=== PATIENT | male | born 1980 | race Caucasian/White ===

== ENCOUNTER 2020-10-31 14:00 | Emergency (ER) | payer MEDICARE, MEDICAID ==
[~2020-10-31] VITALS: Ht 172.7 cm; Wt 115.3 kg
[~2020-10-31 14:00] MED LIST: GUAN2TAB11 PO; LISI20TA28 PO; NICO-631 TD; QUET300T5 PO; SIMV20TA PO
[2020-10-31 14:36] VITALS: BP 129/93
== END 2020-10-31 16:56 | disposition left against medical advice (07) ==
LOC: ER 14:00
DX: M79.604 Pain in right leg (principal); Z53.21 Procedure and treatment not carried out due to patient leaving prior to being seen by health care provider

== ENCOUNTER 2020-11-03 19:48 | Emergency (ER) | payer MEDICARE, MEDICAID ==
[~2020-11-03] VITALS: Ht 172.7 cm; Wt 106.3 kg
[2020-11-03 20:09] VITALS: BP 148/90
== END 2020-11-04 02:26 | disposition left against medical advice (07) ==
LOC: ER 19:48
DX: M79.604 Pain in right leg (principal); Z53.21 Procedure and treatment not carried out due to patient leaving prior to being seen by health care provider

== ENCOUNTER 2021-05-27 14:11 | Inpatient (IN) | payer MEDICARE, MEDICAID ==
[~2021-05-27] VITALS: Ht 172.7 cm; Wt 102.7 kg
[2021-05-27] MEDS ORDERED: hydrOXYzine 25 MG tablet PO ONE (15:45)
[2021-05-27 16:44] LABS: BASOPHILS % (AUTO) 0.5 % (0-1); EOSINOPHILS # (AUTO) 0.1 X10'3 (0-0.9); EOSINOPHILS % (AUTO) 0.5 % (0-6); HEMATOCRIT 47.9 % (42.0-52.0); HEMOGLOBIN 16.5 g/dl (14.0-17.9); LYMPHOCYTES # (AUTO) 2.6 X10'3 (1.1-4.8); LYMPHOCYTES % (AUTO) 24.2 % (21-51); MEAN CORPUSCULAR HEMOGLOBIN 30.9 PG (27.0-31.0); MEAN CORPUSCULAR HGB CONC 34.5 g/dL (33.0-36.5); MEAN CORPUSCULAR VOLUME 89.5 FL (78-98); MEAN PLATELET VOLUME 8.3 FL (7.4-10.4); MONOCYTES # (AUTO) 0.6 X10'3 (0-0.9); MONOCYTES % (AUTO) 5.2 % (2-12); NEUTROPHILS # (AUTO) 7.6 X10'3 (1.8-7.7); NEUTROPHILS % (AUTO) 69.6 % (42-75); PLATELET COUNT 216 X10'3 (140-440); RED BLOOD COUNT 5.35 X10'6 (4.70-6.10); RED CELL DISTRIBUTION WIDTH 14.5 % (11.5-14.5); WHITE BLOOD COUNT 10.9 X10'3 (4.5-11.0)
[2021-05-27 16:52] LABS: ALANINE AMINOTRANSFERASE 42 U/L (12-78); ALBUMIN 4.5 G/DL (3.4-5.0); ALBUMIN/GLOBULIN RATIO 1.3 (1.1-1.5); ALKALINE PHOSPHATASE 90 IU/L (46-116); ANION GAP 15 (8-16); ASPARTATE AMINO TRANSFERASE 21 U/L (10-37); BILIRUBIN,TOTAL 0.4 MG/DL (0.1-1.0); BLOOD UREA NITROGEN 12 MG/DL (7-18); BUN/CREATININE RATIO 12.2 (5.4-32.0); CHLORIDE 105 MMOL/L (99-107); CREATININE 0.98 MG/DL (0.60-1.10); GLUCOSE 116 MG/DL (70-104); POTASSIUM 3.7 MMOL/L (3.5-5.1); SODIUM 140 MMOL/L (135-145); TOTAL CARBON DIOXIDE 20.3 MMOL/L (24-32); eGFR 85 ML/MIN
[2021-05-27 17:01] LABS: ETHANOL < 0.010 GM/DL (0.0-0.010)
--- NOTE | 2021-05-27 17:23 | NUR ---
PT ACTIVELY PACING AROUND ROOM. APPEARS ANXIOUS.
[2021-05-27 17:24] LABS: URINE AMPHETAMINE SCREEN NEGATIVE (Neg); URINE BARBITUATE SCREEN NEGATIVE (Neg); URINE BENZODIAZEPINES SCREEN NEGATIVE (Neg); URINE CANNABINOID SCREEN POSITIVE (Neg); URINE COCAINE SCREEN NEGATIVE (Neg); URINE METHADONE SCREEN NEGATIVE (Neg); URINE OPIATE SCREEN NEGATIVE (Neg); URINE PHENCYCLIDINE SCREEN NEGATIVE (Neg)
[2021-05-27 17:33] LABS: CLARITY,URINE CLEAR (Clear); COLOR,URINE YELLOW (Yellow); GLUCOSE, URINE NEGATIVE (Neg); KETONES,URINE TRACE mg/dl (Neg); LEUKOCYTE ESTERASE ,URINE NEGATIVE (Neg); NITRITES, URINE NEGATIVE (Neg); OCCULT BLOOD,URINE NEGATIVE (Neg); PH,URINE 5.5 (4.8-8.0); PROTEIN,URINE 100 mg/dl (Neg); UROBILINOGEN,URINE 0.2 E.U/dL (0.2-1.0)
--- NOTE | 2021-05-27 17:47 | NUR ---
PT MOM AT BEDSIDE.
[2021-05-27 17:54] LABS: UA COLLECTION TYPE URINAL
[2021-05-27 17:55] LABS: BACTERIA,URINE NONE SEEN /HPF (Neg); HYALINE CASTS 0-3 /LPF (NEGATIVE); RBC,URINE NONE SEEN /HPF (0-2)
[2021-05-27 17:56] LABS: SQUAMOUS EPITHELIAL CELL,UR NONE SEEN /LPF (FEW); WBC,URINE 0-4 /HPF (0-4)
[2021-05-27] MEDS ORDERED: QUET300T2 PO (19:57)
[2021-05-27] MEDS ORDERED: QUET400T13 PO (23:36)
[2021-05-28] MEDS ORDERED: quetiapine 100mg tablet PO ONE (02:35)
--- NOTE | 2021-05-28 06:31 | NUR ---
Report received from JHON Freire. Patient resting quietly; no apparent distress.
--- NOTE | 2021-05-28 07:06 | NUR ---
PACKET FAXED TO [facility] FROM BOTH ADMITTING FAX AND NURSES STATION MACHINES AT 0700 05/28/21
--- NOTE | 2021-05-28 08:15 | NUR ---
Patient given breakfast tray.
[2021-05-28] MEDS ORDERED: nicotine 21mg patch - 24 hr TD ONE (11:10)
--- NOTE | 2021-05-28 12:18 | NUR ---
Patient moved from main ER to overflow. Endorses suicidal ideation with a plan to stab himself. Contracts for safety at this time. Resting quietly in bed.
[2021-05-28] MEDS ORDERED: PALI234D IM (12:30)
[2021-05-28] MEDS ORDERED: ATOR20TA PO (12:31)
[2021-05-28] MEDS ORDERED: HYDR-3686 PO (12:34)
[2021-05-28] MEDS ORDERED: DESV100T PO (12:35)
[2021-05-28] MEDS ORDERED: APIX5TAB3 PO (12:38)
[2021-05-28] MEDS ORDERED: TRAZ-251 PO (12:38)
[2021-05-28] MEDS ORDERED: QUET-1 PO (12:38)
[2021-05-28] MEDS ORDERED: LISI10TA27 PO (12:39)
[2021-05-28] MEDS: lisinopril 20mg tablet PO SCH (12:53)
[2021-05-28] MEDS: guanFACINE 1 mg tablet PO SCH ×2 (14:19→19:58)
[2021-05-28] MEDS: apixaban 5mg tablet PO SCH (14:19)
[2021-05-28] MEDS: hydrOXYzine 25 MG tablet PO SCH (14:20)
--- NOTE | 2021-05-28 15:18 | NUR ---
Transfers to [facility] at this time. Ambulates off the unit escorted by security. No s/sx acute distress.
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
[2021-05-28] MEDS ORDERED: loperamide 2mg capsule PO PRN (15:45)
[2021-05-28] MEDS ORDERED: acetaminophen 325mg tablet PO PRN ×2 (15:45)
[2021-05-28] MEDS ORDERED: magnesium hydroxide 30ml (MOM) UD suspension PO PRN (15:45)
[2021-05-28] MEDS ORDERED: mag hydrox/Alum hydrox/simeth 30ml oral suspension PO PRN (15:45)
[2021-05-28] MEDS ORDERED: NICOTINE POLACRILEX 2 MG LOZENGE BC PRN (16:05)
[2021-05-28] MEDS ORDERED: hydrOXYzine 25 MG tablet PO PRN (16:05)
[2021-05-28 16:10] VITALS: BP 160/90
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
[2021-05-28] MEDS: quetiapine 100mg tablet PO SCH (19:58)
[2021-05-28] MEDS: atorvastatin 20mg tablet PO SCH (19:59)
[2021-05-28 20:32] VITALS: BP 132/84
[2021-05-28] MEDS ORDERED: traZODone 50mg tablet PO SCH (21:00)
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
[2021-05-29 07:16] VITALS: BP 109/70
[2021-05-29] MEDS: nicotine 21mg patch - 24 hr TD SCH (08:02)
[2021-05-29] MEDS: guanFACINE 1 mg tablet PO SCH ×2 (08:02→20:55)
[2021-05-29] MEDS: hydrOXYzine 25 MG tablet PO SCH (08:03)
[2021-05-29] MEDS: lisinopril 20mg tablet PO SCH (08:03)
[2021-05-29] MEDS: apixaban 5mg tablet PO SCH (08:03)
[2021-05-29 09:12] LABS: CHOL/HDL RATIO 6.1 (0.00-4.99); CHOLESTEROL 202 MG/DL (0-200); HDL CHOLESTEROL 33 MG/DL (35-60); LDL CHOLESTEROL 113 MG/DL (50-100); TRIGLYCERIDES 263 MG/DL (20-135)
[2021-05-29] MEDS: venlafaxine 25mg tablet PO SCH ×3 (09:15→20:56)
[2021-05-29 09:29] LABS: HEMOGLOBIN A1C 5.8 % (4.5-6.2)
--- NOTE | 2021-05-29 17:50 | NUR ---
Nursing Progress Note: Legal hold: 5150 Client on involuntary status for DTS. Report received from JHON Garcia with use of SBAR. Why are they here: Pt was placed on a 5150 by [facility] for attempted suicide on 05/27/21. He was transported by EMS to [facility] ED. Current [address] [facility] is for DTS. Edward reported hearing voices that "never go away." he left a note for his mother and laid in the backyard with a knife to stab himself. He reports that his cat "knew something was wrong and stopped him." Assessment What has happened this shift: Patient is resting quietly in bed at the start of the shift. Cooperative with medications and 1:1 assessment. Appears somewhat depressed and isolates to his room. States, I wonder how long I have to stay here. Endorses AH but does not repeat what they say. He does state that they say mean things but they do not tell him to do things. States, I always hear voices. Eats meals in the community room and interacts appropriately with staff and peers. Naps in the afternoon. Upon awakening patient states he is feeling better. States, I havent slept in 3 days. I think Im catching up. S/I, H/I: Denies A/VH: Endorses AH that say bad things Sleep: Naps off and on throughout the day ADL's: Independent Group attendance: NA Were meds taken: Yes Any med S/E: None observed or reported Mental Status Exam Appearance: Tall male, clean, neat, wearing green unit scrubs. Eye contact: Fair Behavior: Cooperative, isolative Speech: Clear, normal rate/ volume Mood: Ok. Affect: Constricted Thought process: Linear Thought Content: Wanting to go home. Cognition: A/O x4 Insight: Poor Judgment: Poor Interventions PRN's used: None Therapeutic interventions: Maintained safe, established rapport, therapeutic environment, encouraged unit orientation, provided appropriate nutrition, medication administration/education/monitoring, redirection as needed, encouraged therapeutic conversation; Q15 min safety checks. Restraints/seclusion/emergency medication: N/A Justification of Continued Inpatient Treatment: Pt presents to [facility] with SI. Requires a safe and supportive environment with medication adjustment and monitoring.
[2021-05-29 20:15] VITALS: BP 132/72
[2021-05-29] MEDS: quetiapine 100mg tablet PO SCH (20:55)
[2021-05-29] MEDS: atorvastatin 20mg tablet PO SCH (20:55)
[2021-05-29] MEDS: traZODone 50mg tablet PO SCH (20:56)
--- NOTE | 2021-05-30 03:00 | NUR ---
Nursing Progress Note: Legal hold: 5150 Client on involuntary status for DTS. Report received from JHON Thrasher with use of SBAR. Why are they here: Pt was placed on a 5150 by [facility] for attempted suicide on 05/27/21. He was transported by EMS to [facility] ED. Current 5150 written by [facility] is for DTS. Edward reported hearing voices that "never go away." he left a note for his mother and laid in the backyard with a knife to stab himself. He reports that his cat "knew something was wrong and stopped him." Assessment What has happened this shift: Patient was resting quietly in bed at the start of the shift. He was easily aroused and cooperative with medications and 1:1 assessment. He was noted to be sweating but denied discomfort. After being examined he covered his body and face with the blanket to go back to sleep. Tonight he reports that he feels good because he does not have any thoughts of killing himself. At the time of his evaluation he also reported that he was not currently hearing voices. S/I, H/I: Denies A/VH: Denies current AH/VH Sleep: Sleeping at the time of this note ADL's: Independent Group attendance: N/A Were meds taken: Yes - whole with water Any med S/E: None observed or reported Mental Status Exam Appearance: Male, appropriately groomed, wearing green unit scrubs. Eye contact: Fair Behavior: Cooperative, isolative Speech: Clear, normal rate/ volume Mood: Good Affect: Constricted Thought process: Linear Thought Content: Feels good that he does not have SI. Wants to sleep. Cognition: A/O x4 Insight: Poor Judgment: Poor Interventions PRN's used: None Therapeutic interventions: Maintained safe, established rapport, therapeutic environment, provided appropriate nutrition, medication administration/education/monitoring, redirection as needed, encouraged therapeutic conversation; Q15 min safety checks. Restraints/seclusion/emergency medication: N/A Justification of Continued Inpatient Treatment: Pt presents to [facility] with SI. Requires a safe and supportive environment with medication adjustment and monitoring.
[2021-05-30 08:11] VITALS: BP 128/71
[2021-05-30] MEDS: lisinopril 20mg tablet PO SCH (08:12)
[2021-05-30] MEDS: hydrOXYzine 25 MG tablet PO SCH (08:13)
[2021-05-30] MEDS: apixaban 5mg tablet PO SCH (08:13)
[2021-05-30] MEDS: guanFACINE 1 mg tablet PO SCH ×2 (08:13→20:53)
[2021-05-30] MEDS: nicotine 21mg patch - 24 hr TD SCH (08:13)
[2021-05-30] MEDS: venlafaxine 25mg tablet PO SCH ×3 (08:13→20:53)
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
[2021-05-30 19:32] VITALS: BP 124/80
[2021-05-30] MEDS: atorvastatin 20mg tablet PO SCH (20:52)
[2021-05-30] MEDS: quetiapine 100mg tablet PO SCH (20:53)
[2021-05-30] MEDS: traZODone 50mg tablet PO SCH (20:53)
--- NOTE | 2021-05-31 03:00 | NUR ---
Nursing Progress Note: Legal hold: 5150 Client on involuntary status for DTS. Report received from JHON Thrasher with use of SBAR. Why are they here: Pt was placed on a 5150 by [facility] for attempted suicide on 05/27/21. He was transported by EMS to [facility] ED. Current 5150 written by [facility] is for DTS. Edward reported hearing voices that "never go away." he left a note for his mother and laid in the backyard with a knife to stab himself. He reports that his cat "knew something was wrong and stopped him." Assessment What has happened this shift: At the start of the shift the patient was up ambulating in the hallway and listening to headphones. He looked well, was groomed and asked for his medicines. At the time of med-pass pt was in his room. He reported he had a good day. He did not have any SI, he was able to take a shower and do some laundry. He is looking forward to being discharged home. He will live with his mother since he is on SSI. He also states that if he gets SI while at home, he will call his mother for help. S/I, H/I: Denies A/VH: Denies current AH/VH Sleep: Sleeping at the time of this note ADL's: Independent Group attendance: N/A Were meds taken: Yes - whole with water Any med S/E: None observed or reported Mental Status Exam Appearance: Male, well-groomed, wearing a sweatshirt and green scrub bottoms. Eye contact: Fair Behavior: Cooperative & interacted more today Speech: Clear, normal rate/ volume Mood: Good Affect: Constricted and he partially smiled once Thought process: Linear Thought Content: Feels good, not having SI, looking forward to going home Cognition: A/O x4 Insight: Fair. States if he has SI when he goes home he will call his mother for help Judgment: Poor Interventions PRN's used: None Therapeutic interventions: Maintained safe, established rapport, therapeutic environment, provided appropriate nutrition, medication administration/education/monitoring, redirection as needed, encouraged therapeutic conversation; Q15 min safety checks. Restraints/seclusion/emergency medication: N/A Justification of Continued Inpatient Treatment: Pt presents to [facility] with SI. Requires a safe and supportive environment with medication adjustment and monitoring. Addendum: 05/31/21 at 0532 by Lien Castillo RN At the start of the shift he asked for a Nicotine patch. When I told him he gets the patch once a day, he was able to show me the patch on his Left arm. I offered him the Nicotine lozenges but he declined. He did endorse having cravings but stated they were not too much
[2021-05-31] MEDS: venlafaxine 25mg tablet PO SCH ×3 (07:16→20:21)
[2021-05-31] MEDS: apixaban 5mg tablet PO SCH (07:16)
[2021-05-31] MEDS: guanFACINE 1 mg tablet PO SCH ×2 (07:16→20:21)
[2021-05-31] MEDS: hydrOXYzine 25 MG tablet PO SCH (07:16)
[2021-05-31] MEDS: lisinopril 20mg tablet PO SCH (07:17)
[2021-05-31] MEDS: nicotine 21mg patch - 24 hr TD SCH (07:19)
[2021-05-31 07:52] VITALS: BP 139/80
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
[2021-05-31 20:15] VITALS: BP 135/78
[2021-05-31] MEDS: traZODone 50mg tablet PO SCH (20:20)
[2021-05-31] MEDS: atorvastatin 20mg tablet PO SCH (20:21)
[2021-05-31] MEDS ORDERED: quetiapine 100mg tablet PO SCH (21:00)
[2021-05-31] MEDS ORDERED: clozapine 25mg tablet PO ONE (21:00)
--- NOTE | 2021-06-01 03:00 | NUR ---
Nursing Progress Note: Legal hold: 5250 Client on involuntary status for DTS. Report received from JHON Thrasher with use of SBAR. Why are they here: Pt was placed on a 5150 by [facility] for attempted suicide on 05/27/21. He was transported by EMS to [facility] ED. Current 5150 written by [facility] is for DTS. Edward reported hearing voices that "never go away." he left a note for his mother and laid in the backyard with a knife to stab himself. He reports that his cat "knew something was wrong and stopped him." Assessment What has happened this shift: Patient was in his room laying in his bed. He reported he was feeling well. He asked if he got "the new medication." He was started on Clonazepine today. He reported the new medication, "is stronger and to help me more. They are going to stop my Seroquel and Invega." He did not have any SI today and denies any AH/VH. S/I, H/I: Denies A/VH: Denies current AH/VH Sleep: Sleeping at the time of this note ADL's: Independent Group attendance: N/A Were meds taken: Yes - whole with water Any med S/E: None observed or reported Mental Status Exam Appearance: Male, appropriately groomed, wearing a sweatshirt and green scrub bottoms. Eye contact: Fair Behavior: Cooperative Speech: Clear, normal rate/ volume Mood: Good Affect: Constricted (and maybe congruent for him). He made eye contact with me when he said he felt good Thought process: Linear Thought Content: Feels good, not having SI, looking forward to starting the new medicine (Clozapine) Cognition: A/O x4 Insight: Fair. Is aware of the desired effect of Clozapine and will be discontinuing the Seroquel & Invega Sustenna Judgment: Poor Interventions PRN's used: None Therapeutic interventions: Maintained safe, established rapport, therapeutic environment, provided appropriate nutrition, medication administration/education/monitoring, redirection as needed, encouraged therapeutic conversation; Q15 min safety checks. Restraints/seclusion/emergency medication: N/A Justification of Continued Inpatient Treatment: Pt presents to [facility] with SI. Requires a safe and supportive environment with medication adjustment and monitoring.
[2021-06-01 08:00] VITALS: BP 145/93
[2021-06-01] MEDS: hydrOXYzine 25 MG tablet PO SCH (08:31)
[2021-06-01] MEDS: guanFACINE 1 mg tablet PO SCH ×2 (08:32→20:04)
[2021-06-01] MEDS: apixaban 5mg tablet PO SCH (08:32)
[2021-06-01] MEDS: venlafaxine 25mg tablet PO SCH ×3 (08:32→20:05)
[2021-06-01] MEDS: lisinopril 20mg tablet PO SCH (08:32)
[2021-06-01] MEDS: nicotine 21mg patch - 24 hr TD SCH (08:35)
--- NOTE | 2021-06-01 12:44 | NUR ---
Initial: Pt admit dx psychosis and suicidal ideation per EMR. Pt PO intake 100% of regular meals, meeting estimated nutritional needs. LBM 05/31, bowel care available PRN. No nutrition intervention at this time. Will continue to monitor. Recommendations: 1. Continue regular diet as tolerated 2. Bowel care PRN 3. Weekly wt Addendum: 06/01/21 at [address] Amended: Links added. Addendum: 06/01/21 at [address] I have reviewed assessment by internal controls specialist
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
[2021-06-01] MEDS: quetiapine 100mg tablet PO SCH (20:05)
[2021-06-01] MEDS: atorvastatin 20mg tablet PO SCH (20:05)
[2021-06-01] MEDS: traZODone 50mg tablet PO SCH (20:05)
[2021-06-01 20:20] VITALS: BP 133/79
[2021-06-01] MEDS ORDERED: clozapine 25mg tablet PO SCH (21:00)
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
[2021-06-02] MEDS: guanFACINE 1 mg tablet PO SCH ×2 (07:40→19:57)
[2021-06-02] MEDS: venlafaxine 25mg tablet PO SCH ×3 (07:40→19:57)
[2021-06-02] MEDS: hydrOXYzine 25 MG tablet PO SCH (07:40)
[2021-06-02] MEDS: lisinopril 20mg tablet PO SCH (07:41)
[2021-06-02] MEDS: nicotine 21mg patch - 24 hr TD SCH (07:42)
[2021-06-02] MEDS: apixaban 5mg tablet PO SCH (07:43)
[2021-06-02 07:55] VITALS: BP 131/73
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
--- NOTE | 2021-06-02 16:52 | NUR ---
Group Art Tx, Continued: Patient was able to follow all directives and complete and identify his stages of loss/grief and change: He noted: Finding Meaning and Suffering. Patient specified his "Loss [place]" was related to his being 'here on the unit." He wrote: I am a person who " lives life to it's fullest." Patients' responses were minimal re: his thoughts and feelings. *Please refer to [facility] for a complete overview of todays session. Lilia Powell MA, [employer] #[id number] [facility] Art Therapist Addendum: 06/02/21 at 1653 by Lilia Powell SS Amended: Links added.
[2021-06-02] MEDS: traZODone 50mg tablet PO SCH (19:57)
[2021-06-02] MEDS: atorvastatin 20mg tablet PO SCH (19:57)
[2021-06-02] MEDS: quetiapine 100mg tablet PO SCH (19:58)
[2021-06-02 20:36] VITALS: BP 137/86
[2021-06-02] MEDS ORDERED: clozapine 25mg tablet PO SCH (21:00)
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
[2021-06-03 07:54] VITALS: BP 142/76
[2021-06-03] MEDS: guanFACINE 1 mg tablet PO SCH (08:10)
[2021-06-03] MEDS: venlafaxine 25mg tablet PO SCH (08:10)
[2021-06-03] MEDS: apixaban 5mg tablet PO SCH (08:10)
[2021-06-03 08:11] VITALS: BP_SYST 142
[2021-06-03] MEDS: lisinopril 20mg tablet PO SCH (08:11)
[2021-06-03] MEDS: nicotine 21mg patch - 24 hr TD SCH (08:11)
[2021-06-03] MEDS: hydrOXYzine 25 MG tablet PO SCH (08:11)
--- NOTE | 2021-06-03 11:41 | NUR ---
DCP Presenting Issues: Per attending physician, pt is ready for d/c. Interventions: Clinician met w/pt and engaged him in dcp activities, per session, pt sees Dr. Bonner @ [facility]. Clinician had t/c with [facility] & scheduled pt's post hospital f/u with Dr. Bonner. Met w/pt and had him contact his mother to arrange transportation home. Mother on her way to pick up operator. Plan: Pt to d/c and f/u with Dr. Bonner @ [facility] in outpt services. jose Francis LCSW Addendum: 06/03/21 at 1144 by Jose Francis Amended: Links added.
[2021-06-03] MEDS ORDERED: DESV100T PO (11:55)
[2021-06-03] MEDS ORDERED: APIX5TAB3 PO (11:55)
[2021-06-03] MEDS ORDERED: TRAZ-256 PO (11:55)
[2021-06-03] MEDS ORDERED: LISI20TA28 PO (11:55)
[2021-06-03] MEDS ORDERED: ATOR20TA PO (11:55)
[2021-06-03] MEDS ORDERED: CLOZ100T21 PO (11:55)
[2021-06-03] MEDS ORDERED: GUAN2TAB PO (11:55)
--- NOTE | 2021-06-03 12:37 | NUR ---
Discharge Note: Paperwork and follow up plan reviewed with the patient including smoking cessation information. Patient is agreeable to discharge to self-care and denies any SI at this time. No s/sx acute distress are noted. Escorted off the unit by staff at 12:15 with all of his belongings and is picked up by family. Discharged with the following instructions: Follow-Up: Patient has been scheduled/referred to the following providers for post-hospital discharge and aftercare treatment. Psychiatrist: Your post-hospital appointment with Dr. Bonner at [facility] is scheduled for 06/10 at 8:15 AM. Primary Care Provider: You are encouraged to contact [facility] and request for a follow-up appointment with your primary care provider Therapist: Discharge Address: Home [address] [place], Transportation: Family to black pickler Patient given community crisis services information and National suicide hotline handout. Please call [phone] for your second outpatient smoking cessation appointment. Resources for education regarding mental illness: [address] [address] For urgent mental health crisis needs please contact Mobile Crisis Outreach Team Monday through Monday 8:30a to 5:00pm. Mobile Crisis Outreach Team [address] [place] [id number]
[2021-06-10] MEDS ORDERED: paliperidone palmitate inj 234 MG/1.5 ML SYRINGE IM SCH (08:00)
== END 2021-06-03 12:22 | disposition home or self-care (01) | DRG 885 ==
LOC: ER 14:12 → ADULT MH 05-28 13:10
PROVIDERS: ADMIT Psychiatry & Neurology Psychiatry; ATTEND Psychiatry & Neurology Psychiatry
DX: F25.0 Schizoaffective disorder, bipolar type (principal); R45.851 Suicidal ideations; E66.3 Overweight; E78.00 Pure hypercholesterolemia, unspecified; E78.5 Hyperlipidemia, unspecified; F12.90 Cannabis use, unspecified, uncomplicated; F15.90 Other stimulant use, unspecified, uncomplicated; Z20.822 Contact with and (suspected) exposure to COVID-19; I10 Essential (primary) hypertension; F41.9 Anxiety disorder, unspecified; F17.200 Nicotine dependence, unspecified, uncomplicated; Z82.49 Family history of ischemic heart disease and other diseases of the circulatory system; Z82.3 Family history of stroke; Z79.899 Other long term (current) drug therapy; Z87.820 Personal history of traumatic brain injury; Z91.51 Personal history of suicidal behavior; Z86.718 Personal history of other venous thrombosis and embolism; Z79.01 Long term (current) use of anticoagulants; Z82.5 Family history of asthma and other chronic lower respiratory diseases; Z71.6 Tobacco abuse counseling; Z68.34 Body mass index [BMI] 34.0-34.9, adult; Z88.2 Allergy status to sulfonamides; Z88.8 Allergy status to other drugs, medicaments and biological substances; S06.9X9S Unspecified intracranial injury with loss of consciousness of unspecified duration, sequela
CPT/HCPCS: 36415; 80053; 80061; 80305; 80320; 81001; 83036; 84443; 85025; 87081; 87635; 99285; C9803; Q0177